=== PATIENT | male | born 1970 | race Caucasian/White ===

== ENCOUNTER 2020-03-11 21:37 | Inpatient (IN) ==
[2020-03-11] MEDS ORDERED: ONDANSETRON INJ 2 MG/ML 2 ML VIAL IV STA (21:53)
[2020-03-11] MEDS ORDERED: MoRPHine SULFATE 4 MG/ML 1 ML CARP\\VIAL IV STA ×2 (21:53→23:53)
--- NOTE | 2020-03-11 21:57 | Emergency Department Note ---
History of Present Illness General Chief complaint: Abdominal Pain Stated complaint: RLQ PAIN Time Seen by Provider: 03/11/20 21:42 History of Present Illness Maximum Pain Intensity: 6 This 50-year-old with ulcerative colitis was followed by Dr. Hernandez presents to the ER complaining of abdominal pain with nausea and lack of appetite with weight loss Location: Abdomen Quality: Painful Severity: Moderate Duration: Past few days Timing: Started a few days ago Context: Symptoms persisted and patient came in Modifying factors: better with rest; worse with activity Patient called his GI doctor is advised to go to the ER. Patient denies chest pain, dyspnea, fevers, vomiting, flulike illness. No prior abdominal surgeries. Home Medications Medication Instructions Recorded Confirmed Type Lactobacillus rhamnosus GG 1 cap PO DAILY 03/11/20 03/11/20 History [Culturelle] balsalazide 2,250 mg PO TID 03/11/20 03/11/20 History cholecalciferol (vitamin D3) 0 mcg PO DAILY 03/11/20 03/11/20 History [Vitamin D3] iron 0 mg PO DAILY 03/11/20 03/11/20 History omeprazole 40 mg PO BID 03/11/20 03/11/20 History Allergies Allergy/AdvReac Type Severity Reaction Status Date / Time bee venom protein (honey bee) Allergy Mild Unknown Unverified 03/11/20 22:34 pollen extracts Allergy Mild Unknown Unverified 03/11/20 22:34 Past Med/Surg History Medical History Ulcerative colitis Surgical History No pertinent past surgical history Social History Smoking Status: Never smoker Feels Safe at Home: Yes Review of Systems A total of 10 systems reviewed and were otherwise negative Physical Exam Vital Signs Vital Signs - 24 hr 03/11/20 21:38 Temperature 36.7 C Temperature Source Temporal Artery Scan Pulse Rate 89 Respiratory Rate 18 Blood Pressure 141/80 H Blood Pressure Mean 100 Blood Pressure Position Sitting Pulse Oximetry 97 Oxygen Delivery Method Room Air Sepsis Recent Fever Within 48 Hours No Sepsis New/Unexplained Change in Mental Status No Sepsis Action Taken by Nursing No Action Required VITALS: Vitals are noted on the nurse's note and reviewed by myself. Vital signs stable. GENERAL: Pleasant male, in no acute distress, nondiaphoretic, well-developed well-nourished. SKIN: Capillary reflex less than 2 seconds. HEENT: Normocephalic. PERRLA. EOMI. Nares patent. Mucous membranes moist. Neck is supple without nuchal rigidity. HEART: Regular rate and rhythm without murmurs gallops or rubs. LUNGS: Clear to auscultation bilaterally without wheezes, rales or rhonchi. No retractions or accessory muscle use. ABDOMEN: Positive bowel sounds x 4. Normal tympanic percussion. Soft, tender to palpation right side abdomen, without masses or organomegaly. No CVA tenderness no guarding or rebound tenderness. Rectal exam: No fissures or tears, dark brown stool, guaiac positive. Nurse present. MUSCULOSKELETAL: No gross musculoskeletal defects. NEURO: Patient was alert and oriented to person place and time. No focal neurological deficits. Course Administered Medications Discontinued Medications Sodium Chloride (Nss 1000ml) 1,000 mls @ 999 mls/hr IV .Q1H1M SHELLI Stop: 03/11/20 23:00 Last Infusion: 03/11/20 23:45 Dose: 0 mls/hr Documented by: [id number] Admin: 03/11/20 22:09 Dose: 999 mls/hr Documented by: [id number] Ioversol (Ioversol 100ml) 93 ml IV ONCE ONE Stop: 03/11/20 23:15 Last Admin: 03/11/20 23:15 Dose: 93 ml Documented by: [id number] Morphine Sulfate (Morphine Sulfate 4 Mg/Ml 1 Ml Carp\Vial) 4 mg IV NOW STA Stop: 03/11/20 21:54 Last Admin: 03/11/20 22:11 Dose: 4 mg Documented by: [id number] Ondansetron HCl (Ondansetron Inj 2 Mg/Ml 2 Ml Vial) 4 mg IV NOW STA Stop: 03/11/20 21:54 Last Admin: 03/11/20 22:10 Dose: 4 mg Documented by: [id number] Medical Decision Making Medical Records Attestation: I reviewed the patient's medical records. Home Medications Current Medication List: was personally reviewed by me Laboratory Data Attestation: I reviewed the patient's lab results. Result diagrams: 03/11/20 21:55 03/11/20 21:55 Lab Results 03/11/20 03/11/20 03/11/20 Range/Units 21:55 21:55 21:55 WBC 13.40 H (4.8-10.8) K/uL RBC 4.88 (4.7-6.1) M/uL Hgb 13.7 L (14.0-18.0) g/dL Hct 38.4 L (42-52) % MCV 78.7 L (80-100) fL MCH 28.1 (25-34) pg MCHC 35.7 (32-36) g/dL RDW Std Deviation 35.1 L (36.4-46.3) fL RDW Coeff of Drew 12.2 (11.5-14.5) % Plt Count 222 (130-400) K/uL MPV 9.8 (7.4-10.4) fL Immature Gran % (Auto) 0.1 % Neut % (Auto) 70.8 % Lymph % (Auto) 15.4 % Metcalfe % (Auto) 13.5 % Eos % (Auto) 0.1 % Baso % (Auto) 0.1 % Neut # (Auto) 9.46 H (1.4-6.5) K/uL Lymph # (Auto) 2.07 (1.2-3.4) K/uL Metcalfe # (Auto) 1.81 H (0.11-0.59) K/uL Eos # (Auto) 0.02 (0-0.5) K/uL Baso # (Auto) 0.02 (0-0.2) K/uL Immature Gran # (Auto) 0.02 (0.00-0.02) K/uL ESR 5 (0-14) mm/hr Sodium 137 (136-145) mmol/L Potassium 3.5 (3.5-5.1) mmol/L Chloride 101 (98-107) mmol/L Carbon Dioxide 29 (21-32) mmol/L Anion Gap 7.0 (3-11) BUN 26 H (7-18) mg/dl Creatinine 0.66 (0.6-1.4) mg/dl Est Cr Clr Drug Dosing 104.3 ml/min Est GFR ( Amer) 129.7 Est GFR (Non-Af Amer) 111.9 BUN/Creatinine Ratio 39.6 H (10-20) Glucose 126 H (70-99) mg/dl Calcium 8.9 (8.5-10.1) mg/dl Total Bilirubin 1.0 (0.2-1) mg/dl AST 68 H (15-37) U/L ALT 67 (12-78) U/L Alkaline Phosphatase 76 (45-117) U/L C-Reactive Protein 0.47 H (0-0.29) mg/dl Total Protein 6.5 (6.4-8.2) gm/dl Albumin 3.3 L (3.4-5.0) gm/dl Globulin 3.2 (2.5-4.0) gm/dl Albumin/Globulin Ratio 1.0 (0.9-2) Lipase 148 (73-393) U/L Imaging Data Attestation: I personally reviewed and interpreted this imaging study as follow s: MDM Narrative Prior records/ancillary studies reviewed. Triage Nursing notes reviewed. The patient's history was concerning for abdominal pain. Differential diagnosis: Etiologies such as appendicitis, diverticulitis, PUD, biliary pathology, UTI, pancreatitis, obstruction, mesenteric ischemia, aortic pathology, infections, inflammatory bowel disease, renal colic, as well as others were entertained. Physical examination findings: As above. ER treatment provided: An order was placed for continuous cardiac monitoring. The monitor shows a rate of 60-100 with a sinus rhythm. IV fluids, Zofran, morphine Protonix, Pepcid On reassessment the patient felt better. Diagnostics interpreted by me: The labs revealed leukocytosis, mild anemia. Type and screen sent Imaging studies: [place], [place] [phone] CT Scan Report Patient: MATTHEW ZAMBRANO Admit Date: 03/11/20 MR#: [id number] Address1: [address] [place] [address] Acct ID:[id number] Address2: Date: [address] [facility] Zip: [place] [address] Age: 50 Location: ED Sex: M Room/Bed: Att Phy: Diagnosis: RLQ PAIN Damaris Phy: PCP,NO Service Date: 03/11/20 Fam Phy: Interpreting Phy: Edis Kaye MD Admit Phy: Ordering Phy: Kati Haskins .AALIYAH cc: ~ CT SCAN OF THE ABDOMEN AND PELVIS WITH IV CONTRAST CLINICAL HISTORY: Right-sided abdominal pain. Reported history of ulcerative colitis. Melanotic stool. Weight loss. COMPARISON STUDY: No priors. TECHNIQUE: Following the IV administration of 93 cc of Optiray 320, CT scan of the abdomen and pelvis is performed from the lung bases to the proximal femora. Images are reviewed in the axial, sagittal, and coronal planes. IV contrast was administered without complication. A dose lowering technique was utilized adhering to the principles of ALARA. CT DOSE: 292.45 mGy.cm FINDINGS: Lung bases: The heart is top normal in size and without pericardial effusion. The lung bases are clear noting a fat-containing Bochdalek hernia on the left. There is a small hiatal hernia. Liver: The contrast-enhanced liver is normal in size and contour. The liver demonstrates diffusely diminished attenuation suggesting steatosis. More focal fatty infiltration is seen adjacent to the falciform ligament. There is no intrahepatic biliary ductal dilatation. The hepatic veins and portal veins are patent. Gallbladder: Unremarkable. Spleen: Normal in size and attenuation. Pancreas: Unremarkable. Adrenal glands: Unremarkable. Kidneys: The contrast enhanced kidneys are normal in size and without hydronephrosis. The kidneys enhance symmetrically. Abdominal vasculature: The abdominal aorta is normal in course and caliber. Bowel: There is marked wall thickening and edema with mucosal hyperemia involving the distal stomach/proximal duodenum. There is surrounding inflammation and trace fluid. Mild wall thickening of the right colon is likely related to adjacent duodenal inflammation. There is no bowel obstruction. The appendix is well-visualized and normal. Peritoneum: There is no intraperitoneal free air or abdominal ascites. There is a fat-containing umbilical hernia. Lymphadenopathy: None. Pelvic viscera: The bladder, prostate, and seminal vesicles are normal as imaged. There are bilateral varicoceles. A hydrocele is partially imaged on the right. Skeletal structures: No lytic or blastic lesions are seen. An osteochondroma is seen arising from the posterior aspect of the lesser trochanter of the right femur, best seen on image #[id number]. This closely approximate the ischium. IMPRESSION: 1. There is a significant inflammatory process seen involving the distal stomach/proximal duodenum, likely representing duodenitis versus ulcer disease. Endoscopy could be considered for further assessment. 2. Mild wall thickening of the right colon is likely related to adjacent duodenal inflammation. 3. No intraperitoneal free air is seen and there is no organized fluid collection. 4. Mild hepatic steatosis. 5. A large osteochondroma arises posteriorly from the lesser trochanter of the right femur. This closely approximates the right ischium and may predispose the patient to ischiofemoral impingement. 6. Additional findings as above. ACT 112: Negative or not required by law. Electronically signed by: Edis Kaye M.D. 03/11/2020 11:30 PM Dictated: 03/11/202316 Transcribed: 03/11/202316 Consultation: A consultation was placed with Dr. Adams. the case was discussed and diagnostics were reviewed. The patient was evaluated in the ER for further treatment. Exam and history seem consistent with abdominal pain with concerns for ulcer versus duodenitis. Patient had weight loss with nausea and lack of appetite. Guaiac was positive. He was started on Protonix and was given Pepcid. Medicine was consulted. He will be evaluated for admission. His GI doctor is Dr. Jj. He sent the patient in. Type and screen was sent. Patient agreeable to treatment plan of admission. By the evaluation outlined above emergent etiologies such as appendicitis, diverticulitis, UTI, pancreatitis, obstruction, mesenteric ischemia, aortic pathology, renal colic, as well as others were deemed relatively unlikely. The pt informed about the findings as listed above. All questions were answered and pleased with the treatment. The chart was completed utilizing [employer] Speech voice recognition software. Grammatical errors, random word insertions, pronoun errors, and incomplete sentences are an occassional consequence of this system due to software limitations, ambient noise, and hardware issues. Any formal questions or concerns about the content, text, or information contained within the body of this dictation should be directly addressed to the physician operator assistant i cementing for clarification. Impression & Plan Abdominal pain, GI bleed Discharge Plan Visit Data Chief Complaint: Abdominal Pain Stated Complaint: RLQ PAIN ED Provider: Edis Fields ED Midlevel Provider: Kati Haskins Discharge Problem: Abdominal pain, GI bleed Patient Disposition: Admitted As Inpatient Condition: Fair Forms Stand Alone Forms: Linksify Prescriptions Prescriptions: No Action omeprazole 40 mg capsule,delayed release(DR/EC) 40 mg PO BID RF: 0 balsalazide 750 mg capsule 2,250 mg PO TID RF: 0 Culturelle 10 billion cell Capsule 1 cap PO DAILY RF: 0 iron 18 mg Tablet 0 mg PO DAILY RF: 0 cholecalciferol (vitamin D3) [Vitamin D3] 25 mcg (1,000 unit) Tablet 0 mcg PO DAILY RF: 0 Referrals Referrals: PCP,NO [Primary Care Provider] - Discharge Problem: Abdominal pain Qualifiers: Abdominal location: upper abdomen, unspecified Qualified Code(s): R10.10 - Upper abdominal pain, unspecified
[2020-03-11] MEDS ORDERED: SODIUM CHLORIDE 0.9% 1000ML 1,000 ML IV SCH (22:00)
[2020-03-11 22:06] LABS: Basophils # (auto) 0.02 K/uL (0-0.2); Basophils % (auto) 0.1 %; Eosinophils # (auto) 0.02 K/uL (0-0.5); Eosinophils % (auto) 0.1 %; Hematocrit (blood only) 38.4 % (42-52); Hemoglobin 13.7 g/dL (14.0-18.0); Immature Granulocytes # (auto) 0.02 K/uL (0.00-0.02); Immature Granulocytes % (auto) 0.1 %; Lymphocytes # (auto) 2.07 K/uL (1.2-3.4); Lymphocytes % (auto) 15.4 %; Mean Corpuscular Hemoglobin 28.1 pg (25-34); Mean Corpuscular Hgb Conc 35.7 g/dL (32-36); Mean Corpuscular Volume 78.7 fL (80-100); Mean Platelet Volume 9.8 fL (7.4-10.4); Monocytes # (auto) 1.81 K/uL (0.11-0.59); Monocytes % (auto) 13.5 %; Neutrophils # (auto) 9.46 K/uL (1.4-6.5); Neutrophils % (auto) 70.8 %; Platelet Count 222 K/uL (130-400); RDW Coefficient of Variation 12.2 % (11.5-14.5); RDW Standard Deviation 35.1 fL (36.4-46.3); Red Blood Count 4.88 M/uL (4.7-6.1)
[2020-03-11 22:24] LABS: Albumin Level 3.3 gm/dl (3.4-5.0); BUN Creatinine Ratio 39.6 (10-20); C Reactive Protein 0.47 mg/dl (0-0.29); Calcium 8.9 mg/dl (8.5-10.1); Creatinine Clr Calc Pharmacy 104.3 ml/min; Est GFR (African American) 129.7; Est GFR (Non-African American) 111.9; Potassium 3.5 mmol/L (3.5-5.1)
[2020-03-11 22:27] LABS: Globulin 3.2 gm/dl (2.5-4.0); Total Protein 6.5 gm/dl (6.4-8.2)
[2020-03-11] MEDS ORDERED: OPTIRAY 320 100ml IV ONE (23:14)
--- NOTE | 2020-03-11 23:31 | CT Scan Report ---
CT SCAN OF THE ABDOMEN AND PELVIS WITH IV CONTRAST CLINICAL HISTORY: Right-sided abdominal pain. Reported history of ulcerative colitis. Melanotic sto ol. Weight loss. COMPARISON STUDY: No priors. TECHNIQUE: Following the IV administration of 93 cc of Optiray 320, CT scan of the abdomen and pelvi s is performed from the lung bases to the proximal femora. Images are reviewed in the axial, sagittal , and coronal planes. IV contrast was administered without complication. A dose lowering technique wa s utilized adhering to the principles of ALARA. CT DOSE: 292.45 mGy.cm FINDINGS: Lung bases: The heart is top normal in size and without pericardial effusion. The lung bases are kenisha r noting a fat-containing Bochdalek hernia on the left. There is a small hiatal hernia. Liver: The contrast-enhanced liver is normal in size and contour. The liver demonstrates diffusely di minished attenuation suggesting steatosis. More focal fatty infiltration is seen adjacent to the falc iform ligament. There is no intrahepatic biliary ductal dilatation. The hepatic veins and portal vein s are patent. Gallbladder: Unremarkable. Spleen: Normal in size and attenuation. Pancreas: Unremarkable. Adrenal glands: Unremarkable. Kidneys: The contrast enhanced kidneys are normal in size and without hydronephrosis. The kidneys enh ance symmetrically. Abdominal vasculature: The abdominal aorta is normal in course and caliber. Bowel: There is marked wall thickening and edema with mucosal hyperemia involving the distal stomach/ proximal duodenum. There is surrounding inflammation and trace fluid. Mild wall thickening of the rig ht colon is likely related to adjacent duodenal inflammation. There is no bowel obstruction. The appe ndix is well-visualized and normal. Peritoneum: There is no intraperitoneal free air or abdominal ascites. There is a fat-containing umbi lical hernia. Lymphadenopathy: None. Pelvic viscera: The bladder, prostate, and seminal vesicles are normal as imaged. There are bilateral varicoceles. A hydrocele is partially imaged on the right. Skeletal structures: No lytic or blastic lesions are seen. An osteochondroma is seen arising from the posterior aspect of the lesser trochanter of the right femur, best seen on image #[id number]. This closely approximate the ischium. IMPRESSION: 1. There is a significant inflammatory process seen involving the distal stomach/proximal duodenum, l ikely representing duodenitis versus ulcer disease. Endoscopy could be considered for further assessm ent. 2. Mild wall thickening of the right colon is likely related to adjacent duodenal inflammation. 3. No intraperitoneal free air is seen and there is no organized fluid collection. 4. Mild hepatic steatosis. 5. A large osteochondroma arises posteriorly from the lesser trochanter of the right femur. This clos krystin approximates the right ischium and may predispose the patient to ischiofemoral impingement. 6. Additional findings as above. ACT 112: Negative or not required by law. Electronically signed by: Edis Kaye M.D. 03/11/2020 11:30 PM
[2020-03-11] MEDS ORDERED: PANTOprazole 80 MG in DEXTROSE 5% 100 ML IV STA (23:38)
[2020-03-11] MEDS ORDERED: FAMOTIDINE 20MG/5ML IV PUSH IV STA (23:53)
[2020-03-12 00:32] LABS: INR 1.2 (0.9-1.1); Prothrombin Time 12.3 Seconds (9.0-12.0)
--- NOTE | 2020-03-12 01:18 | History & Physical Report ---
Date of Service March 12, 2020 Assessment & Plan (1) UGIB (upper gastrointestinal bleed): Gastritis, duodenitis, possible PUD on CT Anemia secondary to above Ulcerative colitis, stable on regimen for years as per patient Hyperglycemia rule out DM Right hip osteochondroma, predisposition for ischiofemoral impingement as per CT report Patient denies hip complaints currently. Medical telemetry IV PPI GI consult Re: UGI B Anemia work-up, transfuse PRBC if hemoglobin less than 7 and or for symptomatic anemia Orthopedics consult Re: Right hip osteochondroma, ischiofemoral impingement potential as per CT report Check hemoglobin A1c DVT prophylaxis. SCDs RE GI bleed Full code Text document was generated using [employer] voice recognition software. It may contain grammatical or spelling errors. Kindly contact undersigned for clarification of any documentation item in question. History of Present Illness Chief Complaint: Right side abdominal, dark tarry stools Primary Care Provider: Dr. Ko History obtained from patient and records. Medical history significant for ulcerative colitis. 3 days history of achy right-sided abdominal pain with dry heaving later followed by dark tarry stools. No chest pain, no S OB, no fever, no chills. Denies OTC NSAID intake. No unusual weight loss as per patient. IV PPI, Famotidine administered at the ER for UGI B. Medical History as above Flex sigmoidoscopy December 2018 showed chronic active colitis, diverticulosis Surgical History : Vasectomy, tonsillectomy/adenoidectomy Family History : Heart disease, IBD Personal/Social history : Non-smoker, no EtOH intake, [employer] business Allergies Allergy/AdvReac Type Severity Reaction Status Date / Time bee venom protein (honey bee) Allergy Mild Unknown Unverified 03/11/20 22:34 pollen extracts Allergy Mild Unknown Unverified 03/11/20 22:34 Home Medications Medication Instructions Recorded Confirmed Type Lactobacillus rhamnosus GG 1 cap PO DAILY 03/11/20 03/11/20 History [Culturelle] balsalazide 2,250 mg PO TID 03/11/20 03/11/20 History cholecalciferol (vitamin D3) 0 mcg PO DAILY 03/11/20 03/11/20 History [Vitamin D3] iron 0 mg PO DAILY 03/11/20 03/11/20 History omeprazole 40 mg PO BID 03/11/20 03/11/20 History Past Med/Surg History Medical History (Updated 03/12/20 @ 08:46 by Jesus Espinal MD) Ulcerative colitis Surgical History No pertinent past surgical history Social History Smoking Status: Never smoker Hx Alcohol Use: No Hx Substance Use: No Preferred Language: Bulgarian Communication Ability: Effective Unit Aide Tech Required: No Beliefs That Will Affect Care: None Current Living Situation: Spouse and Family Other Information That Helps Us Care for You: No Feels Safe at Home: Yes Safety Concerns: Feels Safe At This Time Assistive Devices: None and Glasses Review of Systems Review of Systems: As per HPI, all 10 systems reviewed, all other ROS negative Physical Exam Physical Exam: GENERAL: Comfortable, pleasant, no respiratory distress SKIN: Normal color, warm HEENT: Alopecia, pale palpebral conjunctivae, no ptosis, dry buccal mucosa NECK : Supple, no tenderness CHEST : CTA, no tenderness HEART : RRR, no obvious murmurs ABDOMEN: Some distention, right upper quadrant tenderness EXTREMITIES : No LE swelling/tenderness, no other conspicuous deformities noted NEUROLOGIC : Coherent, no facial asymmetry, no other gross focality Results & Data Results & Data ([facility]) Vital Signs (Past 12 Hours) Vital Signs Temp Pulse Resp BP Pulse Ox 03/12/20 01:01 83 18 146/81 H 96 03/12/20 00:30 81 16 133/74 96 03/12/20 00:11 83 16 144/78 H 96 03/11/20 23:35 83 21 130/74 95 03/11/20 23:00 85 16 97 03/11/20 21:38 36.7 C 89 18 141/80 H 97 Laboratory Results Laboratory Results WBC 13.40 K/uL (4.8-10.8) H 03/11/20 21:55 RBC 4.88 M/uL (4.7-6.1) 03/11/20 21:55 Hgb 13.7 g/dL (14.0-18.0) L 03/11/20 21:55 Hct 38.4 % (42-52) L 03/11/20 21:55 MCV 78.7 fL (80-100) L 03/11/20 21:55 MCH 28.1 pg (25-34) 03/11/20 21:55 MCHC 35.7 g/dL (32-36) 03/11/20 21:55 RDW Std Deviation 35.1 fL (36.4-46.3) L 03/11/20 21:55 RDW Coeff of Drew 12.2 % (11.5-14.5) 03/11/20 21:55 Plt Count 222 K/uL (130-400) 03/11/20 21:55 MPV 9.8 fL (7.4-10.4) 03/11/20 21:55 Immature Gran % (Auto) 0.1 % 03/11/20 21:55 Neut % (Auto) 70.8 % 03/11/20 21:55 Lymph % (Auto) 15.4 % 03/11/20 21:55 Corson % (Auto) 13.5 % 03/11/20 21:55 Eos % (Auto) 0.1 % 03/11/20 21:55 Baso % (Auto) 0.1 % 03/11/20 21:55 Neut # (Auto) 9.46 K/uL (1.4-6.5) H 03/11/20 21:55 Lymph # (Auto) 2.07 K/uL (1.2-3.4) 03/11/20 21:55 Corson # (Auto) 1.81 K/uL (0.11-0.59) H 03/11/20 21:55 Eos # (Auto) 0.02 K/uL (0-0.5) 03/11/20 21:55 Baso # (Auto) 0.02 K/uL (0-0.2) 03/11/20 21:55 Immature Gran # (Auto) 0.02 K/uL (0.00-0.02) 03/11/20 21:55 ESR 5 mm/hr (0-14) 03/11/20 21:55 PT 12.3 Seconds (9.0-12.0) H 03/11/20 21:55 INR 1.2 (0.9-1.1) H 03/11/20 21:55 Sodium 137 mmol/L (136-145) 03/11/20 21:55 Potassium 3.5 mmol/L (3.5-5.1) 03/11/20 21:55 Chloride 101 mmol/L (98-107) 03/11/20 21:55 Carbon Dioxide 29 mmol/L (21-32) 03/11/20 21:55 Anion Gap 7.0 (3-11) 03/11/20 21:55 BUN 26 mg/dl (7-18) H 03/11/20 21:55 Creatinine 0.66 mg/dl (0.6-1.4) 03/11/20 21:55 Est Cr Clr Drug Dosing 104.3 ml/min 03/11/20 21:55 Est GFR ( Amer) 129.7 03/11/20 21:55 Est GFR (Non-Af Amer) 111.9 03/11/20 21:55 BUN/Creatinine Ratio 39.6 (10-20) H 03/11/20 21:55 Glucose 126 mg/dl (70-99) H 03/11/20 21:55 Calcium 8.9 mg/dl (8.5-10.1) 03/11/20 21:55 Total Bilirubin 1.0 mg/dl (0.2-1) 03/11/20 21:55 AST 68 U/L (15-37) H 03/11/20 21:55 ALT 67 U/L (12-78) 03/11/20 21:55 Alkaline Phosphatase 76 U/L (45-117) 03/11/20 21:55 C-Reactive Protein 0.47 mg/dl (0-0.29) H 03/11/20 21:55 Total Protein 6.5 gm/dl (6.4-8.2) 03/11/20 21:55 Albumin 3.3 gm/dl (3.4-5.0) L 03/11/20 21:55 Globulin 3.2 gm/dl (2.5-4.0) 03/11/20 21:55 Albumin/Globulin Ratio 1.0 (0.9-2) 03/11/20 21:55 Lipase 148 U/L (73-393) 03/11/20 21:55 SARS-CoV-2 Ag (Rapid) Negative (Negative) 03/12/20 00:52 Blood Type B Positive 03/11/20 21:53 Antibody Screen NEGATIVE 03/11/20 21:53 Draw and Hold Cancelled 03/11/20 21:[address] abdomen pelvis: 1. There is a significant inflammatory process seen involving the distal stomach/proximal duodenum, likely representing duodenitis versus ulcer disease. Endoscopy could be considered for further assessment. 2. Mild wall thickening of the right colon is likely related to adjacent duodenal inflammation. 3. No intraperitoneal free air is seen and there is no organized fluid collection. 4. Mild hepatic steatosis. 5. A large osteochondroma arises posteriorly from the lesser trochanter of the right femur. This closely approximates the right ischium and may predispose the patient to ischiofemoral impingement.
[2020-03-12] MEDS ORDERED: ACETAMINOPHEN 325 MG TAB PO PRN (01:24)
[2020-03-12] MEDS ORDERED: PROMETHAZINE HCL 6.25 MG in SODIUM CHLORIDE 0.9% 50 ML IV PRN (02:59)
[2020-03-12] MEDS ORDERED: LORazepam 0.25 MG/0.5 ML VIAL IV PRN (02:59)
[2020-03-12] MEDS ORDERED: MoRPHine SULFATE 2 MG/ML CARP IV PRN (02:59)
[2020-03-12] MEDS: LACTATED RINGER'S 1,000 ML IV SCH ×2 (03:38→19:40)
[2020-03-12] MEDS: [UNRECOGNIZED DRUG - OTHER] SCH ×2 (03:39→15:06)
[2020-03-12 07:03] LABS: Basophils # (auto) 0.02 K/uL (0-0.2); Basophils % (auto) 0.2 %; Eosinophils # (auto) 0.07 K/uL (0-0.5); Eosinophils % (auto) 0.6 %; Hematocrit (blood only) 36.9 % (42-52); Hemoglobin 12.7 g/dL (14.0-18.0); Immature Granulocytes # (auto) 0.02 K/uL (0.00-0.02); Immature Granulocytes % (auto) 0.2 %; Lymphocytes # (auto) 3.34 K/uL (1.2-3.4); Mean Corpuscular Hemoglobin 27.3 pg (25-34); Mean Corpuscular Hgb Conc 34.4 g/dL (32-36); Mean Corpuscular Volume 79.2 fL (80-100); Mean Platelet Volume 10.9 fL (7.4-10.4); Monocytes # (auto) 1.68 K/uL (0.11-0.59); Monocytes % (auto) 13.6 %; Neutrophils # (auto) 7.22 K/uL (1.4-6.5); Neutrophils % (auto) 58.4 %; Platelet Count 194 K/uL (130-400); RDW Coefficient of Variation 12.3 % (11.5-14.5); RDW Standard Deviation 35.6 fL (36.4-46.3); Red Blood Count 4.66 M/uL (4.7-6.1); Reticulocyte % 1.1 % (0.5-2.0); Reticulocytes # 0.05 10^6/uL (0.02-0.10); White Blood Count 12.35 K/uL (4.8-10.8)
[2020-03-12 07:34] LABS: Albumin Level 2.9 gm/dl (3.4-5.0); BUN Creatinine Ratio 34.2 (10-20); Calcium 8.2 mg/dl (8.5-10.1); Creatinine Clr Calc Pharmacy 138.5 ml/min; Est GFR (African American) 135.9; Est GFR (Non-African American) 117.2; Globulin 2.8 gm/dl (2.5-4.0); Potassium 3.3 mmol/L (3.5-5.1); Total Protein 5.7 gm/dl (6.4-8.2)
[2020-03-12 07:37] LABS: Ferritin 300.2 ng/ml (8-388)
[2020-03-12] MEDS: ADVANCED PROBIOTIC 1250 MG CAPSULE PO SCH (08:47)
[2020-03-12] MEDS: PANTOprazole 40 MG in SYRINGE 0 ML IV SCH ×2 (08:47→21:27)
--- NOTE | 2020-03-12 08:48 | Gastrointestinal Consultation ---
Date of Consultation March 12, 2020 Assessment & Plan (1) GI bleed: (2) Abdominal pain: (3) Abnormal CT of the abdomen: (4) Ulcerative colitis: possible duodenal ulcer causing GIB; UC appears stable. Recs: --protonix IV 40 mg BID --clear liquid diet today --NPO post midnight --EGD tomorrow morning to further evaluate --can continue home dose balsalazide for UC Thank you for allowing me to participate in the care of this patient History of Present Illness Attending Physician: Adair Echols MD 50 yo male with hx UC on balsalazide here for abdominal pain and melena. He notes RUQ pains that are sharp, and has been having dark stool for the last week. Worsening anemia noted on labs. CT A/P showing duodenal abnormality possible ulcer vs. duodenitis. No prior EGD. Last colonoscopy 2 years ago with his UC in remission per patient. Denies abdominal surgeries. Otherwise no issues. VSS, labs reviewed. Allergies Allergy/AdvReac Type Severity Reaction Status Date / Time bee venom protein (honey bee) Allergy Mild Unknown Unverified 03/11/20 22:34 pollen extracts Allergy Mild Unknown Unverified 03/11/20 22:34 Home Medications Medication Instructions Recorded Confirmed Type Lactobacillus rhamnosus GG 1 cap PO DAILY 03/11/20 03/11/20 History [Culturelle] balsalazide 2,250 mg PO TID 03/11/20 03/11/20 History cholecalciferol (vitamin D3) 0 mcg PO DAILY 03/11/20 03/11/20 History [Vitamin D3] iron 0 mg PO DAILY 03/11/20 03/11/20 History omeprazole 40 mg PO BID 03/11/20 03/11/20 History Patient History Medical History Ulcerative colitis Surgical History No pertinent past surgical history Social History Smoking Status: Never smoker Hx Alcohol Use: No Hx Substance Use: No Preferred Language: Arabic Communication Ability: Effective Plastic Surgery Coordinator Required: No Beliefs That Will Affect Care: None Current Living Situation: Spouse and Family Other Information That Helps Us Care for You: No Feels Safe at Home: Yes Safety Concerns: Feels Safe At This Time Assistive Devices: None and Glasses Review of Systems Constitutional: no fever, no chills and no weight loss Eyes: as per Subjective / HPI Ear, Nose, Mouth, Throat: as per Subjective / HPI Respiratory: no dyspnea and no dyspnea on exertion Cardiovascular: no chest pain and no palpitations Gastrointestinal: as per Subjective / HPI Musculoskeletal: no joint pain and no swelling Integumentary: no rash and no lesions Neurologic: no numbness and no paresthesia Psychiatric: no depression and no anxiety Endocrine: no fatigue Hematologic / Lymphatic: no easy bleeding and no easy bruising Physical Exam Constitutional: WD/WN, vitals as above Eyes: EOM intact bilaterally Neck: normal visual inspection Respiratory: normal respiratory effort, lungs clear to auscultation Cardiovascular: RRR, no murmur, no edema Gastrointestinal (Abdomen): Inspection/Auscultation: abdomen normal to inspection; abdomen not distended Percussion/Palpation: abdomen soft; abdomen nontender and no hepatosplenomegaly Musculoskeletal: Extremities: no cyanosis Gait: normal gait Skin: no rashes, warm and dry Neurologic: moves all extremities Psychiatric: A+Ox3, euthymic affect Results & Data ([facility]) Vital Signs (Past 12 Hours) Vital Signs Temp Pulse Pulse Resp BP BP Pulse Ox 03/12/20 08:02 85 03/12/20 07:37 37.0 C 88 18 117/67 96 03/12/20 03:20 82 03/12/20 03:00 37.0 C 88 16 139/74 93 03/12/20 02:30 72 21 145/78 H 95 03/12/20 01:30 84 20 141/82 H 95 03/12/20 01:01 83 18 146/81 H 96 03/12/20 00:30 81 16 133/74 96 03/12/20 00:11 83 16 144/78 H 96 03/11/20 23:35 83 21 130/74 95 03/11/20 23:00 85 16 97 03/11/20 21:38 36.7 C 89 18 141/80 H 97 PG Care Time/CCT Total # of Minutes Spent Total Time Spent with Patient: Total time spent is greater than 50% in coordination of care (as documented) at patient's floor/unit and/or counseling patient: Coding Level of Care Code 15545 Inpt Consult Level 4 Diagnoses GI bleed K92.2 Abdominal pain R10.10 Abdominal location: upper abdomen, unspecified Abnormal CT of the abdomen R93.5 Ulcerative colitis K51.90 (1) Abdominal pain Abdominal location: upper abdomen, unspecified Qualified Code(s): R10.10 - Upper abdominal pain, unspecified
[2020-03-12] MEDS: POTASSIUM CHLORIDE / WTR 10 MEQ/100 ML PLCT IV SCH ×2 (09:11→10:14)
[2020-03-12 10:36] LABS: Folate (Folic Acid) > 20.00 ng/ml (>5.38); Vitamin B12 789 pg/ml (193-986)
--- NOTE | 2020-03-12 11:22 | Orthopedic Consultation ---
Date of Consultation March 12, 2020 Assessment & Plan (1) Osteochondroma of right femur: There was incidental note of an osteochondroma of the right femur. He has no hip pain. No signs or symptoms of ischiofemoral impingement. This is a benign, incidental finding. There is a very small chance of malignant transformation of the cartilage cap of the osteochondroma. I would recommend a follow-up x-ray with Dr. Edwards in 3 months. History of Present Illness Reason for Consultation: Osteochondroma hip Attending Physician: Adair Echols MD History of Present Illness Patient was admitted for GI bleed. Incidental note of an osteochondroma of the hip was noted on the CT scan. He has no prior hip history. No complaints of pain. No radicular symptoms. No neurologic symptoms. No posterior hip pain. Allergies Allergy/AdvReac Type Severity Reaction Status Date / Time bee venom protein (honey bee) Allergy Mild Unknown Unverified 03/11/20 22:34 pollen extracts Allergy Mild Unknown Unverified 03/11/20 22:34 Home Medications Medication Instructions Recorded Confirmed Type Lactobacillus rhamnosus GG 1 cap PO DAILY 03/11/20 03/11/20 History [Culturelle] balsalazide 2,250 mg PO TID 03/11/20 03/11/20 History cholecalciferol (vitamin D3) 0 mcg PO DAILY 03/11/20 03/11/20 History [Vitamin D3] iron 0 mg PO DAILY 03/11/20 03/11/20 History omeprazole 40 mg PO BID 03/11/20 03/11/20 History Patient History Medical History (Updated 03/12/20 @ 11:22 by Gokul Driver MD) Ulcerative colitis Surgical History No pertinent past surgical history Social History Smoking Status: Never smoker Hx Alcohol Use: No Hx Substance Use: No Preferred Language: Uzbek Communication Ability: Effective Compound Specialist Required: No Beliefs That Will Affect Care: None Current Living Situation: Spouse and Family Other Information That Helps Us Care for You: No Feels Safe at Home: Yes Safety Concerns: Feels Safe At This Time Assistive Devices: None and Glasses Physical Exam Constitutional: WD/WN, vitals as above Neck: normal visual inspection Respiratory: normal respiratory effort Cardiovascular: Rate/Rhythm: regular rate Musculoskeletal: Right leg: Normal range of motion of the hip. No tenderness palpation. No pain with internal or external rotation of the hip. Results & Data ([facility]) Vital Signs (Past 12 Hours) Vital Signs Temp Pulse Pulse Resp BP BP Pulse Ox 03/12/20 08:02 85 03/12/20 07:37 37.0 C 88 18 117/67 96 03/12/20 03:20 82 03/12/20 03:00 37.0 C 88 16 139/74 93 03/12/20 02:30 72 21 145/78 H 95 03/12/20 01:30 84 20 141/82 H 95 03/12/20 01:01 83 18 146/81 H 96 03/12/20 00:30 81 16 133/74 96 03/12/20 00:11 83 16 144/78 H 96 03/11/20 23:35 83 21 130/74 95
[2020-03-12 11:50] LABS: Hematocrit (blood only) 37.7 % (42-52); Hemoglobin 12.8 g/dL (14.0-18.0)
--- NOTE | 2020-03-12 14:04 | Hospitalist Progress Note ---
Date of Service March 12, 2020 Assessment & Plan (1) UGIB (upper gastrointestinal bleed): Acute upper GI bleed DD:Gastritis, duodenitis, possible PUD Insetting of H/O ulcerative colitis --CT ABD:There is a significant inflammatory process seen involving the distal stomach/proximal duodenum, likely representing duodenitis versus ulcer disease. Endoscopy could be considered for further assessment. Mild wall thickening of the right colon is likely related to adjacent duodenal inflammation. No intraperitoneal free air is seen and there is no organized fluid collection. Mild hepatic steatosis. A large osteochondroma arises posteriorly from the lesser trochanter of the right femur. This closely approximates the right ischium and may predispose the patient to ischiofemoral impingement. -Continue IV fluids -Clear liquid diet today -Continue IV PPI -Monitor H&H, transfuse PRBCs as needed -N.p.o. after midnight for endoscopy -Appreciate GI input -Avoid aspirin, NSAIDs, anticoagulation Anemia secondary to above Monitor CBC Normal vitamin B12, folic acid, iron studies Management as above Right femur osteochondroma Incidental finding on CT scan Appreciate orthopedics input Asymptomatic CT As above Needs repeat x-ray in 3 months and follow-up with Ulcerative colitis On Balsalazide 750mg TID Hyperglycemia Rule out DM Hb A1C:pending DVT Px: SCDs RE GI bleed Code Status Full code Disposition Expect to discharge home when medically stable Admission and Anticipated Discharge Date Admission Date: March 12, 2020 Subjective Patient is seen and examined at bedside No exam drawn Abdominal pain better today Denies chest pain, shortness of breath, dizziness, nausea No bleeding issues currently Review of Systems Review of Systems: All systems reviewed & are unremarkable except as noted in HPI & below Physical Exam Physical Exam: Physical Exam: Vitals signs as noted above General Appearance:Moderately built and nourished, no apparent distress Head: normocephalic, Atraumatic Eyes: normal inspection, EOMI Neck: supple, Trachea midline Respiratory/Chest: Normal breath sounds, CTA Cardiovascular: S1, S2, No murmur Abdomen/GI:Soft, RUQ and RLQ tender, Bowel sounds present Extremities/Musculoskelatal:normal inspection, no edema Neurologic/Psych:AAOX3, grossly no focal neurological deficits Skin: normal color, warm Results & Data Results & Data ([facility]) Vital Signs (Past 12 Hours) Vital Signs Temp Pulse Pulse Resp BP BP Pulse Ox 12/20/20 11:56 36.9 C 84 18 132/71 95 03/12/20 08:02 85 03/12/20 07:37 37.0 C 88 18 117/67 96 03/12/20 03:20 82 03/12/20 03:00 37.0 C 88 16 139/74 93 03/12/20 02:30 72 21 145/78 H 95 Laboratory Results Short CBC 03/11/20 03/12/20 03/12/20 Range/Units 21:55 06:05 11:35 WBC 13.40 H 12.35 H (4.8-10.8) K/uL Hgb 13.7 L 12.7 L 12.8 L (14.0-18.0) g/dL Hct 38.4 L 36.9 L 37.7 L (42-52) % Plt Count 222 194 (130-400) K/uL BMP 03/11/20 03/12/20 21:55 06:09 Sodium 137 140 Potassium 3.5 3.3 L Chloride 101 104 Carbon Dioxide 29 30 BUN 26 H 20 H Creatinine 0.66 0.59 L Glucose 126 H 87 Calcium 8.9 8.2 L Liver Function 03/11/20 03/12/20 Range/Units 21:55 06:09 Total Bilirubin 1.0 1.0 (0.2-1) mg/dl AST 68 H 53 H (15-37) U/L ALT 67 61 (12-78) U/L Alkaline Phosphatase 76 67 (45-117) U/L Albumin 3.3 L 2.9 L (3.4-5.0) gm/dl
[2020-03-12 14:13] LABS: Appearance Urine Clear (Clear); Bilirubin Urine Negative (Negative); Blood Urine Negative (Negative); Color Urine Yellow; Glucose Urine UA Negative (Negative); Ketones Urine 4+ (Negative); Leukocyte Esterase Urine Negative (Negative); Nitrite Urine Negative (Negative); Protein Urine Negative (Negative); Specific Gravity Urine 1.021 (1.000-1.030); Urobilinogen Urine Negative (Negative)
[2020-03-12] MEDS: BALSALAZIDE PO SCH ×2 (17:11→19:40)
[2020-03-12] MEDS: traMADol HCL 50 MG TABLET PO PRN (19:39)
[2020-03-12 20:01] LABS: Hematocrit (blood only) 36.9 % (42-52); Hemoglobin 12.6 g/dL (14.0-18.0)
[2020-03-13] MEDS: traMADol HCL 50 MG TABLET PO PRN (00:13)
[2020-03-13 06:45] LABS: Basophils # (auto) 0.03 K/uL (0-0.2); Basophils % (auto) 0.4 %; Eosinophils # (auto) 0.24 K/uL (0-0.5); Hematocrit (blood only) 37.5 % (42-52); Hemoglobin 12.8 g/dL (14.0-18.0); Immature Granulocytes # (auto) 0.01 K/uL (0.00-0.02); Immature Granulocytes % (auto) 0.1 %; Lymphocytes # (auto) 2.59 K/uL (1.2-3.4); Lymphocytes % (auto) 32.6 %; Mean Corpuscular Hemoglobin 27.1 pg (25-34); Mean Corpuscular Hgb Conc 34.1 g/dL (32-36); Mean Corpuscular Volume 79.3 fL (80-100); Mean Platelet Volume 10.4 fL (7.4-10.4); Monocytes # (auto) 0.99 K/uL (0.11-0.59); Monocytes % (auto) 12.5 %; Neutrophils # (auto) 4.08 K/uL (1.4-6.5); Neutrophils % (auto) 51.4 %; Platelet Count 168 K/uL (130-400); RDW Coefficient of Variation 11.9 % (11.5-14.5); RDW Standard Deviation 34.6 fL (36.4-46.3); Red Blood Count 4.73 M/uL (4.7-6.1); White Blood Count 7.94 K/uL (4.8-10.8)
[2020-03-13 07:09] LABS: BUN Creatinine Ratio 39.7 (10-20); Calcium 8.4 mg/dl (8.5-10.1); Creatinine Clr Calc Pharmacy 157.1 ml/min; Est GFR (African American) 143.1; Est GFR (Non-African American) 123.5; Magnesium 1.9 mg/dl (1.8-2.4); Potassium 3.6 mmol/L (3.5-5.1)
[2020-03-13 07:31] LABS: Estimated Average Glucose 103 mg/dl; Hemoglobin A1C 5.2 % (4.5-5.6)
[2020-03-13] MEDS: PANTOprazole 40 MG in SYRINGE 0 ML IV SCH (08:01)
--- NOTE | 2020-03-13 08:29 | Anesthesiology Consultation ---
Date of Service March 13, 2020 Assessment & Plan Chart Review Chart Review: Acceptable Risk for Surgery and Patient NOT seen in Pre Admission Testing Consults Requested none ASA ASA2 Proposed Anesthesia Anesthesia Type: MAC History Height/Weight Height: 5 ft 7 in Weight: 66.8 kg Allergies Allergy/AdvReac Type Severity Reaction Status Date / Time bee venom protein (honey bee) Allergy Mild Unknown Unverified 03/11/20 22:34 pollen extracts Allergy Mild Unknown Unverified 03/11/20 22:34 Medications Home Medications Medication Instructions Recorded Confirmed Last Taken Lactobacillus rhamnosus GG 1 cap PO DAILY 03/11/20 03/11/20 Unknown [Culturelle] balsalazide 2,250 mg PO TID 03/11/20 03/11/20 Unknown cholecalciferol (vitamin D3) 0 mcg PO DAILY 03/11/20 03/11/20 Unknown [Vitamin D3] iron 0 mg PO DAILY 03/11/20 03/11/20 Unknown omeprazole 40 mg PO BID 03/11/20 03/11/20 Unknown Active Medications Generic Name Dose Route Start Last Admin Trade Name Freq PRN Reason Stop Dose Admin Pantoprazole Sodium 40 mg/ 10 mls @ 5 mls/min 03/12/20 09:00 03/13/20 08:01 Syringe IV 04/11/20 08:59 5 mls/min BID SHELLI Administration Lactated Ringer's 1,000 mls @ 60 mls/hr 03/12/20 02:59 03/12/20 19:40 Lr IV 04/11/20 02:58 60 mls/hr .[id number] SHELLI Administration Lactobacillus Acidoph/Casei/Rhamnos 2 cap 03/12/20 09:00 03/12/20 08:47 Advanced Probiotic 1250 Mg Capsule PO 04/11/20 08:59 2 cap DAILY SHELLI Administration Morphine Sulfate 2 mg 03/12/20 02:59 03/13/20 05:03 Morphine Sulfate 2 Mg/Ml Carp IV 03/26/20 02:58 2 mg Q3H PRN Administration Pain Balsalazide~Non- 3 ea 03/12/20 14:00 03/12/20 19:40 Formulary Patient's PO 04/11/20 13:59 3 cap Own Med TID SHELLI Administration Tramadol HCl 25 - 50 mg 03/12/20 02:59 12/21/20 00:13 Tramadol Hcl 50 Mg Tablet PO 04/11/20 02:58 50 mg Q4H PRN Administration Pain Past Medical History Medical History Ulcerative colitis Exercise / Class Metabolic Activity II 4-5 Yardwork/Stairs/Walk up hill Past Surgical History Surgical History No pertinent past surgical history Past Anesthesia History No Hx of Anesthesia Complications and No Family Hx of Anesthesia Complications History of PONV No Hx of PONV and No Hx of Motion Sickness Social History Smoking Status: Never smoker Hx Alcohol Use: No Hx Substance Use: No Physical Exam Vital Signs Last Vital Signs Temp 36.8 C 03/13/20 07:19 Pulse 70 03/13/20 07:45 Resp 18 03/13/20 07:19 BP 147/79 H 03/13/20 07:19 Pulse Ox 95 03/13/20 07:19 Testing Laboratory Results 03/13/20 06:23 03/13/20 06:23 PT 12.3 Seconds (9.0-12.0) H 03/11/20 21:55 INR 1.2 (0.9-1.1) H 03/11/20 21:55 Hemoglobin A1c 5.2 % (4.5-5.6) 03/11/20 21:55 Urine Color Yellow 03/12/20 10:45 Urine Appearance Clear (Clear) 03/12/20 10:45 Urine pH 7.0 (4.5-7.5) 03/12/20 10:45 Ur Specific [place] 1.021 (1.000-1.030) 03/12/20 10:45 Urine Protein Negative (Negative) 03/12/20 10:45 Urine Glucose (UA) Negative (Negative) 03/12/20 10:45 Urine Ketones 4+ (Negative) H 03/12/20 10:45 Urine Nitrite Negative (Negative) 03/12/20 10:45 Ur Leukocyte Esterase Negative (Negative) 03/12/20 10:45 Blood Type B Positive 03/11/20 21:53 Antibody Screen NEGATIVE 03/11/20 21:53
[2020-03-13 09:59] LABS: Influenza A virus by PCR Negative (Neg); Influenza B virus by PCR Negative (Neg); RSV by PCR Negative (Neg); SARS CoV2 RNA(COVID-19) InHosp NEGATIVE (Negative)
--- NOTE | 2020-03-13 10:48 | History & Physical Bridge Note ---
Date of Service March 13, 2020 History & Physical Bridge Note I have examined the patient, reviewed the History & Physical and in the interval since the performance of the History & Physical I have noted the following changes of clinical significance: no changes noted. Given the imaging findings of duodenitis and possible peptic ulcer disease we are planning for upper endoscopy today. We have discussed the risks to include bleeding, infection, perforation and need for follow-up studies.
[2020-03-13] MEDS ORDERED: ePHEDrine sulfate 50 MG/ML AMP IV PRN (10:50)
[2020-03-13] MEDS ORDERED: ATROPINE SULFATE 0.1 MG/ML 10ML SYR IV PRN (10:50)
--- NOTE | 2020-03-13 11:11 | Communication Note ---
Date of Service: March 13, 2020 The patient underwent upper endoscopy this morning. Findings Mild esophagitis, biopsies obtained Normal-appearing stomach, biopsies obtained for H. pylori Multiple clean-based ulcers of the duodenal bulb Impression: Patient with upper GI bleeding related to several duodenal ulcers. These appear to be clean-based therefore endoscopic intervention was not needed today. I would recommend continuing omeprazole twice daily for a total of 6 weeks then reducing to 1 time daily thereafter. I would also suggest addition of Carafate 4 times daily for 4 weeks. The patient can have his diet advanced as tolerated and perhaps to be discharged on Friday should there no be further changes in his condition. we would furthermore recommend a repeat upper endoscopy in about 3 months. This can probably be done at the same time as his colonoscopy which can be deferred a few months
[2020-03-13] MEDS ORDERED: LIDOCAINE HCL 2% 2 ML VIAL/AMP(20MG/ML) INFIL ONE (11:12)
[2020-03-13] MEDS ORDERED: PROPOFOL IV EMULSION 10 MG/ML 20 ML VIAL IV ONE (11:12)
--- NOTE | 2020-03-13 11:16 | GI REPORT ---
Patient Name: Bob Peña Procedure Date: 03/13/2020 10:55 AM Date of : 1970 Admit Type: Inpatient Age: 50 Gender: Male Attending MD: Michael Sullivan DO Procedure: Upper GI endoscopy Providers: Michael Sullivan DO Referring MD: Son Jj MD, Adair Echols Md Indications: Melena Medicines: Monitored Anesthesia Care Complications: No immediate complications. Estimated blood loss: Minimal. Estimated Blood Loss: Estimated blood loss was minimal. Procedure: Pre-Anesthesia Assessment: - Prior to the procedure, a History and Physical was performed, and patient medications, allergies and sensitivities were reviewed. The patient's tolerance of previous anesthesia was reviewed. - The risks and benefits of the procedure and the sedation options and risks were discussed with the patient. All questions were answered and informed consent was obtained. - Patient identification and proposed procedure were verified prior to the procedure by the physician, the nurse and the drying oven tender. The procedure was verified in the pre-procedure area in the procedure room. - Pre-procedure physical examination revealed no contraindications to sedation. - ASA Grade Assessment: II - A patient with mild systemic disease. - After reviewing the risks and benefits, the patient was deemed in satisfactory condition to undergo the procedure. - The anesthesia plan was to use monitored anesthesia care (MAC). - Immediately prior to administration of medications, the patient was re-assessed for adequacy to receive sedatives. - The heart rate, respiratory rate, oxygen saturations, blood pressure, adequacy of pulmonary ventilation, and response to care were monitored throughout the procedure. - The physical status of the patient was re-assessed after the procedure. After obtaining informed consent, the endoscope was passed under direct vision. Throughout the procedure, the patient's blood pressure, pulse, and oxygen saturations were monitored continuously. The Endoscope was introduced through the mouth, and advanced to the third part of duodenum. The upper GI endoscopy was accomplished without difficulty. The patient tolerated the procedure well. Findings: The upper third of the esophagus and middle third of the esophagus were normal. LA Grade A (one or more mucosal breaks less than 5 mm, not extending between tops of 2 mucosal folds) esophagitis with no bleeding was found at the gastroesophageal junction. Biopsies were taken with a cold forceps for histology. The pathology specimen was placed into Bottle B. Estimated blood loss was minimal. The entire examined stomach was normal. Biopsies were taken with a cold forceps for histology. The pathology specimen was placed into Bottle A. Estimated blood loss was minimal. Four non-obstructing non-bleeding cratered duodenal ulcers with no stigmata of bleeding were found in the duodenal bulb. The largest lesion was 10 mm in largest dimension. The second portion of the duodenum and third portion of the duodenum were normal. Impression: - Normal upper third of esophagus and middle third of esophagus. - LA Grade A esophagitis. Biopsied. - Normal stomach. Biopsied. - Non-obstructing non-bleeding duodenal ulcers with no stigmata of bleeding. - Normal second portion of the duodenum and third portion of the duodenum. Recommendation: - Return patient to [facility] for ongoing care. - Advance diet as tolerated today. - Use Prilosec (omeprazole) 40 mg PO BID for 6 weeks the reduce to 20 mg per day thereafter. - Use sucralfate tablets 1 gram PO QID for 4 weeks. - Repeat upper endoscopy in 3 months to check healing. Michael Sullivan D.O. Michael Sullivan, 03/13/2020 11:15:45 AM This report has been signed electronically. Note Initiated On: 03/13/2020 10:55 AM Number of Addenda: 0 I attest to the content of the Intraoperative Record and orders documented therein, exceptions below {[id number]}
--- NOTE | 2020-03-13 11:23 | Anesthesiology Progress Note ---
Date of Service March 13, 2020 Anesthesia Post Procedure Vital Signs Vital Signs: Temp Pulse Pulse Resp BP Pulse Ox 03/13/20 10:48 36.6 C 81 20 138/81 97 03/13/20 07:45 70 03/13/20 07:19 36.8 C 76 18 147/79 H 95 03/13/20 04:00 36.7 C 91 H 18 142/73 H 94 03/13/20 01:00 71 03/13/20 00:00 36.5 C 74 18 147/77 H 96 03/12/20 19:28 37.2 C 84 18 134/76 95 03/12/20 18:30 78 03/12/20 15:27 37.1 C 76 18 130/69 93 03/12/20 11:56 36.9 C 84 18 132/71 95 Pain Intensity Abdomen: Pain Intensity: 5 Transfer of Care Handoff Completed per policy Notes Mental Status: alert / awake / arousable Patient Amnestic to Procedure: Yes Nausea / Vomiting: adequately controlled Pain: adequately controlled Airway Patency, RR, SpO2: stable & adequate BP & HR: stable & adequate Hydration State: stable & adequate Anesthetic Complications: no major complications apparent
[2020-03-13] MEDS: BALSALAZIDE PO SCH ×4 (12:03→20:17)
[2020-03-13] MEDS: ADVANCED PROBIOTIC 1250 MG CAPSULE PO SCH (12:03)
[2020-03-13] MEDS: LACTATED RINGER'S 1,000 ML IV SCH (13:27)
[2020-03-13] MEDS: SUCRALFATE 1 GM TAB PO SCH ×3 (13:30→20:17)
--- NOTE | 2020-03-13 18:51 | Hospitalist Progress Note ---
Date of Service March 13, 2020 Assessment & Plan (1) UGIB (upper gastrointestinal bleed): Acute upper GI bleed DD:Gastritis, duodenitis, possible PUD Insetting of H/O ulcerative colitis --CT ABD:There is a significant inflammatory process seen involving the distal stomach/proximal duodenum, likely representing duodenitis versus ulcer disease. Endoscopy could be considered for further assessment. Mild wall thickening of the right colon is likely related to adjacent duodenal inflammation. No intraperitoneal free air is seen and there is no organized fluid collection. Mild hepatic steatosis. A large osteochondroma arises posteriorly from the lesser trochanter of the right femur. This closely approximates the right ischium and may predispose the patient to ischiofemoral impingement. -S/P Endoscopy: LA Grade A esophagitis. Biopsied. Non-obstructing non-bleeding duodenal ulcers with no stigmata of bleeding. -Received IV fluids -Advance diet as tolerated Continue PPI, sucralfate Plan to continue sucralfate for 4 weeks, PPI 40mg twice daily for 6 weeks and then 20mg daily -Monitor H&H, transfuse PRBCs as needed -Appreciate GI input -Avoid aspirin, NSAIDs, anticoagulation -Needs repeat endoscopy in 3 months Anemia secondary to above Monitor CBC Normal vitamin B12, folic acid, iron studies Management as above Right femur osteochondroma Incidental finding on CT scan Appreciate orthopedics input Asymptomatic CT As above Needs repeat x-ray in 3 months and follow-up with Ulcerative colitis On Balsalazide 750mg TID Hyperglycemia Rule out DM Hb A1C:pending DVT Px: SCDs RE GI bleed Code Status Full code Disposition Expect to discharge home when medically stable Admission and Anticipated Discharge Date Admission Date: March 12, 2020 Subjective Patient is seen and examined at bedside And endoscopy earlier today Had 2 loose BMs this morning Denies nausea, vomiting, abdominal pain, chest pain, shortness of breath Tolerated liquid diet Review of Systems Review of Systems: All systems reviewed & are unremarkable except as noted in HPI & below Physical Exam Physical Exam: Physical Exam: Vitals signs as noted above General Appearance:Moderately built and nourished, no apparent distress Head: normocephalic, Atraumatic Eyes: normal inspection, EOMI Neck: supple, Trachea midline Respiratory/Chest: Normal breath sounds, CTA Cardiovascular: S1, S2, No murmur Abdomen/GI:Soft, minimal RLQ tender, Bowel sounds present Extremities/Musculoskelatal:normal inspection, no edema Neurologic/Psych:AAOX3, grossly no focal neurological deficits Skin: normal color, warm Results & Data Results & Data ([facility]) Vital Signs (Past 12 Hours) Vital Signs Temp Pulse Pulse Resp BP BP Pulse Ox 03/13/20 17:20 75 03/13/20 15:29 36.8 C 73 18 148/72 H 98 03/13/20 12:00 37.0 C 77 18 135/71 97 03/13/20 11:40 80 16 131/74 97 03/13/20 11:26 73 16 129/75 97 03/13/20 11:11 78 16 128/72 97 03/13/20 10:48 36.6 C 81 20 138/81 97 03/13/20 07:45 70 03/13/20 07:19 36.8 C 76 18 147/79 H 95 Laboratory Results Short CBC 03/12/20 03/13/20 Range/Units 19:53 06:23 WBC 7.94 (4.8-10.8) K/uL Hgb 12.6 L 12.8 L (14.0-18.0) g/dL Hct 36.9 L 37.5 L (42-52) % Plt Count 168 (130-400) K/uL BMP 03/13/20 06:23 Sodium 140 Potassium 3.6 Chloride 104 Carbon Dioxide 30 BUN 21 H Creatinine 0.52 L Glucose 91 Calcium 8.4 L
[2020-03-13] MEDS: PANTOprazole 40 MG TAB PO SCH (20:16)
[2020-03-14 06:51] LABS: Basophils # (auto) 0.03 K/uL (0-0.2); Basophils % (auto) 0.4 %; Eosinophils # (auto) 0.41 K/uL (0-0.5); Eosinophils % (auto) 4.9 %; Hematocrit (blood only) 39.4 % (42-52); Hemoglobin 13.8 g/dL (14.0-18.0); Immature Granulocytes # (auto) 0.01 K/uL (0.00-0.02); Immature Granulocytes % (auto) 0.1 %; Lymphocytes % (auto) 34.8 %; Mean Corpuscular Hemoglobin 27.3 pg (25-34); Mean Platelet Volume 10.7 fL (7.4-10.4); Monocytes # (auto) 0.87 K/uL (0.11-0.59); Monocytes % (auto) 10.4 %; Neutrophils # (auto) 4.12 K/uL (1.4-6.5); Neutrophils % (auto) 49.4 %; Platelet Count 191 K/uL (130-400); RDW Coefficient of Variation 12.1 % (11.5-14.5); RDW Standard Deviation 34.3 fL (36.4-46.3); Red Blood Count 5.05 M/uL (4.7-6.1); White Blood Count 8.34 K/uL (4.8-10.8)
[2020-03-14 07:30] LABS: BUN Creatinine Ratio 33.5 (10-20); Calcium 8.8 mg/dl (8.5-10.1); Creatinine Clr Calc Pharmacy 140.9 ml/min; Est GFR (African American) 136.8; Est GFR (Non-African American) 118.1; Potassium 3.5 mmol/L (3.5-5.1)
[2020-03-14] MEDS: SUCRALFATE 1 GM TAB PO SCH ×2 (08:22→12:14)
[2020-03-14] MEDS: BALSALAZIDE PO SCH (08:22)
[2020-03-14] MEDS: ADVANCED PROBIOTIC 1250 MG CAPSULE PO SCH (08:22)
[2020-03-14] MEDS: PANTOprazole 40 MG TAB PO SCH (08:22)
--- NOTE | 2020-03-14 13:11 | Hospitalist Progress Note ---
Date of Service March 14, 2020 Assessment & Plan (1) UGIB (upper gastrointestinal bleed): Acute upper GI bleed DD:Gastritis, duodenitis, possible PUD Insetting of H/O ulcerative colitis --CT ABD:There is a significant inflammatory process seen involving the distal stomach/proximal duodenum, likely representing duodenitis versus ulcer disease. Endoscopy could be considered for further assessment. Mild wall thickening of the right colon is likely related to adjacent duodenal inflammation. No intraperitoneal free air is seen and there is no organized fluid collection. Mild hepatic steatosis. A large osteochondroma arises posteriorly from the lesser trochanter of the right femur. This closely approximates the right ischium and may predispose the patient to ischiofemoral impingement. -S/P Endoscopy: LA Grade A esophagitis. Biopsied. Non-obstructing non-bleeding duodenal ulcers with no stigmata of bleeding. -Received IV fluids Continue PPI, sucralfate Plan to continue sucralfate for 4 weeks, PPI 40mg twice daily for 6 weeks and then 20mg daily -Monitor H&H, transfuse PRBCs as needed -Appreciate GI input -Avoid aspirin, NSAIDs, anticoagulation -Needs repeat endoscopy in 3 months -Tolerated regular diet -No recurrence of bleeding currently Anemia secondary to above Monitor CBC Normal vitamin B12, folic acid, iron studies Management as above Right femur osteochondroma Incidental finding on CT scan Appreciate orthopedics input Asymptomatic CT As above Needs repeat x-ray in 3 months and follow-up with Ulcerative colitis On Balsalazide 750mg TID Hyperglycemia Ruleled out DM II Hb A1C:5.2 DVT Px: SCDs RE GI bleed Code Status Full code Disposition Plan to discharge home today Admission and Anticipated Discharge Date Admission Date: March 12, 2020 Subjective Patient is seen and examined at bedside States feeling better today Tolerated regular diet Minimal dark brown-colored BM this morning Discussed with gastroenterology today No new complaints Denies nausea, vomiting, abdominal pain, chest pain, shortness of breath Eager to get discharged Review of Systems Review of Systems: All systems reviewed & are unremarkable except as noted in HPI & below Physical Exam Physical Exam: Physical Exam: Vitals signs as noted above General Appearance:Moderately built and nourished, no apparent distress Head: normocephalic, Atraumatic Eyes: normal inspection, EOMI Neck: supple, Trachea midline Respiratory/Chest: Normal breath sounds, CTA Cardiovascular: S1, S2, No murmur Abdomen/GI:Soft, non tender, Bowel sounds present Extremities/Musculoskelatal:normal inspection, no edema Neurologic/Psych:AAOX3, grossly no focal neurological deficits Skin: normal color, warm Results & Data Results & Data ([facility]) Vital Signs (Past 12 Hours) Vital Signs Temp Pulse Pulse Resp BP Pulse Ox 03/14/20 11:14 36.5 C 74 16 123/78 93 03/14/20 07:24 65 03/14/20 06:36 36.6 C 73 18 129/71 99 03/14/20 05:13 36.4 C L 68 16 142/76 H 98 Laboratory Results Short CBC 03/14/20 Range/Units 05:44 WBC 8.34 (4.8-10.8) K/uL Hgb 13.8 L (14.0-18.0) g/dL Hct 39.4 L (42-52) % Plt Count 191 (130-400) K/uL BMP 03/14/20 05:44 Sodium 139 Potassium 3.5 Chloride 101 Carbon Dioxide 32 BUN 19 H Creatinine 0.58 L Glucose 85 Calcium 8.8
--- NOTE | 2020-03-14 13:22 | Discharge Summary ---
Date of Service March 14, 2020 Admission HPI Per Admitting Provider History obtained from patient and records. Medical history significant for ulcerative colitis. 3 days history of achy right-sided abdominal pain with dry heaving later followed by dark tarry stools. No chest pain, no S OB, no fever, no chills. Denies OTC NSAID intake. No unusual weight loss as per patient. IV PPI, Famotidine administered at the ER for UGI B. Medical History as above Flex sigmoidoscopy December 2018 showed chronic active colitis, diverticulosis Surgical History : Vasectomy, tonsillectomy/adenoidectomy Family History : Heart disease, IBD Personal/Social history : Non-smoker, no EtOH intake, [employer] Admission Exam Per Admitting Provider GENERAL: Comfortable, pleasant, no respiratory distress SKIN: Normal color, warm HEENT: Alopecia, pale palpebral conjunctivae, no ptosis, dry buccal mucosa NECK : Supple, no tenderness CHEST : CTA, no tenderness HEART : RRR, no obvious murmurs ABDOMEN: Some distention, right upper quadrant tenderness EXTREMITIES : No LE swelling/tenderness, no other conspicuous deformities noted NEUROLOGIC : Coherent, no facial asymmetry, no other gross focality Principal Diagnosis Acute upper GI bleed LA Grade A esophagitis Duodenal ulcers Right femur osteochondroma Discharge Data Allergies Allergy/AdvReac Type Severity Reaction Status Date / Time bee venom protein (honey bee) Allergy Mild Unknown Unverified 03/11/20 22:34 pollen extracts Allergy Mild Unknown Unverified 03/11/20 22:34 Consultations 03/11/20 23:41 ED Decision to Admit Stat 03/12/20 02:59 Consult Gastroenterology Routine Consult Orthopedic Surgery Routine Procedures Performed Operation Date: 03/13/20 11:55 Actual Procedures p EGD Biopsy Cytology - Michael Sullivan, DO CT ABD:There is a significant inflammatory process seen involving the distal stomach/proximal duodenum, likely representing duodenitis versus ulcer disease. Endoscopy could be considered for further assessment. Mild wall thickening of the right colon is likely related to adjacent duodenal inflammation. No intraperitoneal free air is seen and there is no organized fluid collection. Mild hepatic steatosis. A large osteochondroma arises posteriorly from the lesser trochanter of the right femur. This closely approximates the right ischium and may predispose the patient to ischiofemoral impingement. EGD: Findings: The upper third of the esophagus and middle third of the esophagus were normal. LA Grade A (one or more mucosal breaks less than 5 mm, not extending between tops of 2 mucosal folds) esophagitis with no bleeding was found at the gastroesophageal junction. Biopsies were taken with a cold forceps for histology. The pathology specimen was placed into Bottle B. Estimated blood loss was minimal. The entire examined stomach was normal. Biopsies were taken with a cold forceps for histology. The pathology specimen was placed into Bottle A. Estimated blood loss was minimal. Four non-obstructing non-bleeding cratered duodenal ulcers with no stigmata of bleeding were found in the duodenal bulb. The largest lesion was 10 mm in largest dimension. The second portion of the duodenum and third portion of the duodenum were normal. Impression: - Normal upper third of esophagus and middle third of esophagus. - LA Grade A esophagitis. Biopsied. - Normal stomach. Biopsied. - Non-obstructing non-bleeding duodenal ulcers with no stigmata of bleeding. - Normal second portion of the duodenum and third portion of the duodenum. Recommendation: - Return patient to [facility] for ongoing care. - Advance diet as tolerated today. - Use Prilosec (omeprazole) 40 mg PO BID for 6 weeks the reduce to 20 mg per day thereafter. - Use sucralfate tablets 1 gram PO QID for 4 weeks. - Repeat upper endoscopy in 3 months to check healing. Ordered Studies 03/11/20 21:53 CT abd pelvis IV con only Stat Hospital Course (1) UGIB (upper gastrointestinal bleed): Acute upper GI bleed DD:Gastritis, duodenitis, possible PUD Insetting of H/O ulcerative colitis --CT ABD:There is a significant inflammatory process seen involving the distal stomach/proximal duodenum, likely representing duodenitis versus ulcer disease. Endoscopy could be considered for further assessment. Mild wall thickening of the right colon is likely related to adjacent duodenal inflammation. No intraperitoneal free air is seen and there is no organized fluid collection. Mild hepatic steatosis. A large osteochondroma arises posteriorly from the lesser trochanter of the right femur. This closely approximates the right ischium and may predispose the patient to ischiofemoral impingement. -S/P Endoscopy: LA Grade A esophagitis. Biopsied. Non-obstructing non-bleeding duodenal ulcers with no stigmata of bleeding. -Received IV fluids Continue PPI, sucralfate Plan to continue sucralfate for 4 weeks, PPI 40mg twice daily for 6 weeks and then 20mg daily -Monitor H&H, transfuse PRBCs as needed -Appreciate GI input -Avoid aspirin, NSAIDs, anticoagulation -Needs repeat endoscopy in 3 months -Tolerated regular diet -No recurrence of bleeding currently Anemia secondary to above Monitor CBC Normal vitamin B12, folic acid, iron studies Management as above Right femur osteochondroma Incidental finding on CT scan Appreciate orthopedics input Asymptomatic CT As above Needs repeat x-ray in 3 months and follow-up with Ulcerative colitis On Balsalazide 750mg TID Hyperglycemia Ruleled out DM II Hb A1C:5.2 DVT Px: SCDs RE GI bleed Code Status Full code Disposition Plan to discharge home today Total Time Total Time Spent Total Time Spent (In Minutes): 42 minutes Total Time Includes: Examination of the Patient, Discharge Planning, Medication Reconciliation, Communication With Other Providers and Other Discharge Plan Discharge Items Patient Disposition: Home - Self-Care Reason For Visit: ANEMIA;GI BLEED Discharge Diagnosis: Acute upper GI bleed LA Grade A esophagitis Duodenal ulcers Right femur osteochondroma Condition on Discharge: Fair Activity: Per Instructions section Exercise/Sports: Gradually increase as tolerated Non-emergency contact: Primary Care Provider, Surgeon and [employer] Worker Call non-emergency contact if: you have any medication questions, your symptoms worsen, your pain is not controlled, your pain is worsening, your pain is unusual for you, your pain is concerning for you and you have a fever Follow-up/Referrals: Nigel Ko MD [Physician] - (Date & Time 03/16/2020 11:00 AM Provider Nigel Ko III, MD Department [facility] ) Diet: Regular Addtl Attending Provider Instructions: Follow-up with your primary care physician Dr. Ko on 03/16/2020 11:00 AM Follow up with your [employer] Worker for for repeat endoscopy as scheduled. 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 Follow-up with your physician for results. Avoid nonsteroidal anti-inflammatory drugs likely Naproxen, Ibuprofen etc as they can increase risk for bleeding. Seek immediate medical attention if your symptoms reoccur or worsen Pending Studies at Discharge: Yes Studies:: Pathology Stand-Alone Forms: My [facility], Smoking Cessation Medications and DC Order Prescriptions: New sucralfate 1 gram Tablet 1 g PO ACHS 30 Days Qty: 120 RF: 0 pantoprazole 40 mg Tablet,Delayed Release (Dr/Ec) 40 mg PO BID Qty: 60 RF: 1 Continued balsalazide 750 mg capsule 2,250 mg PO TID RF: 0 Culturelle 10 billion cell Capsule 1 cap PO DAILY RF: 0 iron 18 mg Tablet 0 mg PO DAILY RF: 0 cholecalciferol (vitamin D3) [Vitamin D3] 25 mcg (1,000 unit) Tablet 0 mcg PO DAILY RF: 0 Discontinued omeprazole 40 mg capsule,delayed release(DR/EC) 40 mg PO BID RF: 0 Discharge Orders: Discharge Order (Routine); Ordered 03/14/20 Ordered By: Adair Echols Admission Data Admit Date/Time: 03/12/20 01:23 Attending Provider: Adair Echols Admit Provider: Ankit Adams Primary Care Provider: PCP,NO Other Providers: Ankit Adams ; Mitchel Flores ; Danay Ramos ; Usha Cheung ; Eileen Queen ; Son Jj ; Michael Sullivan ; Parag Quintero ; Anthony Marshall ; Marvin Beal ; Kim Garcia ; Ami Valiente ; Jessica Tobar ; Marisa Romano ; Humaira Martinez ; Mario Hicks ; Markus Hurtado ; Alejandro Conroy ; Azucena Stuart ; Mark Lawson ; Marge Soto ; Ted Hurtado ; Onofre Balderrama ; Wade Dominique ; Onofre Galindo ; Raudel Hirsch ; Wade Silva ; Dg Alcala ; Alexey Kern ; Nba Solano ; Gokul Driver ; Isacc Powell ; Marge Dyer ; Van Edwards ; Nicolas Waterman ; Adelaida Winn ; Nigel Corey ; Nory Russo Other Interventions: Discharge Summary Assessment (RN) Last Done: 03/14/20 13:53
== END 2020-03-14 14:28 | disposition home or self-care (01) | DRG 378 ==
LOC: ED 21:37 → 2N 03-12 01:23